=== PATIENT | female | born 1965 | race Caucasian/White ===

== ENCOUNTER 2020-12-09 07:40 | Emergency (ER) | payer MEDICAID ==
[~2020-12-09] VITALS: Ht 160 cm; Wt 61.0 kg
[2020-12-09] MEDS ORDERED: KETOROLAC 60MG/2ML VIAL IM ONE (08:15)
[2020-12-09] MEDS ORDERED: ONDANSETRON 4MG ODT PO ONE (08:15)
[2020-12-09 08:26] LABS: CLARITY URINE CLEAR (CLEAR); COLOR URINE YELLOW (YELLOW); KETONES URINE NEGATIVE (NEGATIVE); LEUKOCYTE ESTERASE URINE NEGATIVE (NEGATIVE); NITRITE URINE NEGATIVE (NEGATIVE); OCCULT BLOOD URINE 2+ (NEGATIVE); PH URINE 6.5 (4.5-8.0); PROTEIN URINE NEGATIVE (NEGATIVE); SPECIFIC GRAVITY URINE 1.016 (1.005-1.030); UROBILINOGEN URINE 0.2 E.U./dL (0.2-1.0)
[2020-12-09] MEDS ORDERED: ONDANSETRON HCL 4MG/2ML INJ IV STA (08:44)
[2020-12-09] MEDS ORDERED: MORPHINE SULFATE 4 MG/ML CPJ (NOT FOR IM USE) IV STA (08:44)
[2020-12-09] MEDS ORDERED: SODIUM CHLORIDE 0.9% 1,000 ML IV ONE (08:45)
[2020-12-09 09:50] LABS: BASOPHILS % 0.4 % (0.0-2.0); HEMATOCRIT. 41.3 % (36.0-48.0); HEMOGLOBIN. 14.1 g/dL (12.0-16.0); LYMPHOCYTES % 17.9 % (20.0-50.0); MEAN CORPUSCULAR HEMOGLOBIN 28.3 pg (28.0-32.0); MEAN PLATELET VOLUME 9.5 fl (7.4-10.4); MONOCYTES % 5.1 % (2.0-8.0); NEUTROPHILS % 75.6 % (40.0-76.0); PLATELET 223 x1000/uL (130-400); RED BLOOD CELL COUNT 4.98 mill/uL (4.2-5.4); RED CELL DISTRIBUTION WIDTH 13.7 % (11.6-14.6)
[2020-12-09 09:57] LABS: CHLORIDE 110 mEq/L (98-107)
[2020-12-09 10:05] LABS: PROTHROMBIN TIME 10.3 sec (9.6-11.0)
[2020-12-09] MEDS ORDERED: TAMSULOSIN HCL 0.4MG SR CAPSULE PO ONE (10:30)
[2020-12-09] MEDS ORDERED: TAMSULOSIN HCL 0.4MG SR CAPSULE PO SCH (10:50)
[2020-12-09] MEDS ORDERED: HYDR-4001 MT (11:10)
[2020-12-09] MEDS ORDERED: ONDA4TAB5 MT (11:10)
[2020-12-09] MEDS ORDERED: TAMS-11 PO (11:10)
[2020-12-09] MEDS ORDERED: CEPH500T MT (11:10)
[2020-12-09 12:00] VITALS: BP 142/84
== END 2020-12-09 12:32 | disposition home or self-care (01) ==
LOC: ER 07:40
DX: N20.0 Calculus of kidney (principal); I10 Essential (primary) hypertension
CPT/HCPCS: 36415; 74176; 80053; 81003; 83690; 85025; 85610; 87086; 96360; 99284; J1885; J7030; Q0162